=== PATIENT | male | born 1935 | race Caucasian/White ===

== ENCOUNTER 2016-05-18 10:22 | Inpatient (IN) | payer BC, OTHER ==
[2016-05-18] MEDS ORDERED: ACETAMINOPHEN 325 MG TABLET (FP) PO ONE ×2 (10:27→17:49)
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
[2016-05-18 13:41] LABS: BASOPHIL 0.3 % (0-2.0); EOSINOPHIL 0.8 % (0-4.5); MCH 29.4 pg (25.7-33.7); MCHC 32.9 g/dl (32.0-35.9); MEAN CELL VOLUME 89.2 fl (80-96); MEAN PLT VOLUME 7.7 fl (7.5-11.1); NEUTROPHILS 84.6 % (42.8-82.8); PLATELET COUNT 162 K/MM3 (134-434); RDW 14.3 % (11.9-15.9); WHITE BLOOD COUNT 13.9 K/mm3 (4.0-10.0)
[2016-05-18 13:50] LABS: ALBUMIN 3.7 g/dl (3.4-5.0); ANION GAP 12 (8-16); CALCIUM 8.5 mg/dL (8.5-10.1); CO2 25 mmol/L (21-32); GLUCOSE,RANDOM 95 mg/dL (74-106)
[2016-05-18 13:53] LABS: ALK PHOS 76 U/L (45-117); CREATININE 0.7 mg/dL (0.7-1.3); SGPT/ALT 11 U/L (12-78); TOT PROT 7.2 g/dl (6.4-8.2)
[2016-05-18 13:55] LABS: SGOT/AST 26 U/L (15-37)
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
--- NOTE | 2016-05-18 15:57 | EKG ---
Test Reason : Blood Pressure : / mmHG Vent. Rate : 065 BPM Atrial Rate : 065 BPM P-R Int : 152 ms QRS Dur : 082 ms QT Int : 412 ms P-R-T Axes : 047 -39 046 degrees QTc Int : 428 ms NORMAL SINUS RHYTHM POSSIBLE LEFT ATRIAL ENLARGEMENT LEFT AXIS DEVIATION LEFT VENTRICULAR HYPERTROPHY T WAVE ABNORMALITY, CONSIDER ANTERIOR ISCHEMIA ABNORMAL ECG NO PREVIOUS ECGS AVAILABLE Confirmed by IVONE MARTE MD ([id number]) on 05/18/2016 3:57:09 PM Referred By: Confirmed By:IVONE MARTE MD
[2016-05-18] MEDS ORDERED: ACETAMINOPHEN 325 MG TABLET (FP) ONE (17:50)
--- NOTE | 2016-05-18 18:59 | OP ---
Operative Note - Note: Operative Date: 05/18/16 Pre-Operative Diagnosis: right proximal femur fracture Operation: right gamma nailing Post-Operative Diagnosis: Same as Pre-op Surgeon: Juan Manuel Bhakta Anesthesia: General Estimated Blood Loss (mls): 100 Operative Report Dictated: Yes
[2016-05-18] MEDS ORDERED: OXYCODONE/APAP 5/325MG COMBO TABLET PO PRN ×2 (19:01→19:02)
[2016-05-18] MEDS ORDERED: MIDAZOLAM HCL 2 MG/2 ML SINGLE DOSE VIAL ONE (19:05)
[2016-05-18] MEDS ORDERED: PROPOFOL 20 ML ONE (19:05)
[2016-05-18] MEDS ORDERED: oxyCODONE HCL 5 MG TABLET PO PRN ×2 (19:06)
[2016-05-18] MEDS ORDERED: ACETAMINOPHEN 325 MG TABLET (FP) PO PRN ×2 (19:06)
[2016-05-18] MEDS ORDERED: ePHEDrine SULFATE 50 MG/1 ML AMPULE ONE (19:18)
[2016-05-18] MEDS ORDERED: ceFAZolin SODIUM 1 GM VIAL ONE (19:19)
[2016-05-18] MEDS ORDERED: ceFAZolin SODIUM 1 GM VIAL IVPB ONE (19:20)
[2016-05-18] MEDS ORDERED: DEXAMETHASONE SOD PHOSPHATE 4 MG/1 ML VIAL ONE (19:34)
[2016-05-18] MEDS ORDERED: KETOROLAC TROMETHAMINE 30 MG/1 ML VIAL ONE (19:55)
[2016-05-18] MEDS ORDERED: HYDROmorphone HCL CARPU-JECT 1 MG/1 ML DISP.SYRIN IVPUSH PRN (20:18)
[2016-05-18] MEDS ORDERED: ONDANSETRON 4 MG/2 ML VIAL IVPUSH PRN (20:18)
[2016-05-18] MEDS ORDERED: LACTATED RINGERS SOLUTION 1,000 ML IV SCH (20:30)
[2016-05-18] MEDS: LACTATED RINGERS SOLUTION 1,000 ML IV SCH (21:22)
[2016-05-18 22:40] VITALS: BMI 24.9
[2016-05-19] MEDS: CEFAZOLIN (PRE-DOCKED) 50 ML IVPB SCH ×2 (01:35→11:18)
[2016-05-19 07:12] LABS: MCH 29.8 pg (25.7-33.7); MCHC 34.1 g/dl (32.0-35.9); MEAN CELL VOLUME 87.3 fl (80-96); MEAN PLT VOLUME 7.5 fl (7.5-11.1); PLATELET COUNT 140 K/MM3 (134-434); RDW 14.3 % (11.9-15.9); WHITE BLOOD COUNT 9.8 K/mm3 (4.0-10.0)
[2016-05-19 07:36] LABS: CALCIUM 8.1 mg/dL (8.5-10.1); CREATININE 0.8 mg/dL (0.7-1.3)
[2016-05-19] MEDS ORDERED: METOPROLOL TARTRATE PO SCH (10:00)
[2016-05-19] MEDS ORDERED: PANTOPRAZOLE SODIUM 40 MG/100 ML PRE-DOCKED IVPB SCH (10:00)
--- NOTE | 2016-05-19 10:50 | PN ---
Progress Note (short form) - Note Progress Note: Ortho Pt seen and examined s/p right IM gamma nail pod #1 Selected Entries 05/19/16 05:54 Temperature 98.4 F Pulse Rate 97 H Respiratory 18 Rate Blood Pressure 135/77 Laboratory Tests 05/19/16 06:10 WBC 9.8 Hgb 11.5 L D Hct 33.8 L D Plt Count 140 dressing c/d/i, calf soft, nt nvi a/p PT wbat dvt ppx pain control d/c planning
[2016-05-19] MEDS: LACTATED RINGERS SOLUTION 1,000 ML IV SCH (11:17)
[2016-05-19] MEDS: ENOXAPARIN NA (PORCINE) 40 MG/0.4 ML DISP.SYRIN SQ SCH ×2 (11:18→11:45)
[2016-05-19] MEDS: VALSARTAN 160 MG TABLET (UD) PO SCH ×2 (11:19→11:46)
[2016-05-19] MEDS: ASPIRIN 325 MG TABLET PO SCH ×2 (11:28→11:46)
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
[2016-05-19] MEDS ORDERED: PANTOPRAZOLE SODIUM 80 MG in SODIUM CHLORIDE 100 ML IVPB SCH (12:00)
[2016-05-19 12:13] LABS: BASOPHIL 0.1 % (0-2.0); MCH 29.8 pg (25.7-33.7); MCHC 33.4 g/dl (32.0-35.9); MEAN CELL VOLUME 89.1 fl (80-96); MEAN PLT VOLUME 7.4 fl (7.5-11.1); NEUTROPHILS 84.8 % (42.8-82.8); PLATELET COUNT 151 K/MM3 (134-434); RDW 14.2 % (11.9-15.9); WHITE BLOOD COUNT 15.1 K/mm3 (4.0-10.0)
[2016-05-19] MEDS ORDERED: levETIRAcetam 500 MG/5 ML INJECTION VIAL IVPB SCH (12:15)
[2016-05-19 12:39] LABS: CALCIUM 7.9 mg/dL (8.5-10.1); CREATININE 1.3 mg/dL (0.7-1.3)
[2016-05-19] MEDS ORDERED: ACETAMINOPHEN 650 MG SUPP.RECT PR PRN (13:02)
[2016-05-19] MEDS ORDERED: METOPROLOL TARTRATE 5 MG/5 ML VIAL IVPUSH SCH (13:15)
[2016-05-19] MEDS ORDERED: ONDANSETRON 4 MG/2 ML VIAL IVPUSH PRN ×2 (13:16→13:17)
[2016-05-19] MEDS ORDERED: ONDANSETRON 4 MG/2 ML VIAL IVPB PRN (13:36)
[2016-05-19] MEDS: SODIUM CHLORIDE 1,000 ML IV SCH (14:19)
[2016-05-19] MEDS ORDERED: SODIUM CHLORIDE 1,000 ML IV STA ×2 (14:34→14:37)
[2016-05-19 15:32] LABS: BASOPHIL 0.1 % (0-2.0); MCH 29.4 pg (25.7-33.7); MCHC 33.2 g/dl (32.0-35.9); MEAN CELL VOLUME 88.5 fl (80-96); MEAN PLT VOLUME 7.8 fl (7.5-11.1); NEUTROPHILS 81.9 % (42.8-82.8); PLATELET COUNT 126 K/MM3 (134-434); WHITE BLOOD COUNT 16.3 K/mm3 (4.0-10.0)
[2016-05-19 15:35] LABS: ALBUMIN 2.6 g/dl (3.4-5.0); BILIRUBIN,TOTAL 1.1 mg/dL (0.2-1.0); CALCIUM 7.6 mg/dL (8.5-10.1); CREATININE 1.3 mg/dL (0.7-1.3); TOT PROT 5.1 g/dl (6.4-8.2)
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
[2016-05-19] MEDS ORDERED: oxyCODONE HCL 5 MG TABLET PO PRN ×2 (19:28)
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
[2016-05-19 19:43] LABS: MCH 29.8 pg (25.7-33.7); MCHC 33.7 g/dl (32.0-35.9); MEAN CELL VOLUME 88.6 fl (80-96); WHITE BLOOD COUNT 12.1 K/mm3 (4.0-10.0)
--- NOTE | 2016-05-19 19:55 | PN ---
Physical Exam: SUBJECTIVE: Patient seen and examined OBJECTIVE: Vital Signs Period Temp Pulse Resp BP Sys/Youssef Pulse Ox Last 24 Hr 97.6 F-99.9 F 80-142 13-26 66-158/38-94 95-99 GENERAL: The patient is awake, alert, and fully oriented, in no acute distress. HEAD: Normal with no signs of trauma. EYES: PERRL, extraocular movements intact, sclera anicteric, conjunctiva clear. No ptosis. ENT: Ears normal, nares patent, oropharynx clear without exudates, moist mucous membranes. NECK: Trachea midline, full range of motion, supple. LUNGS: Breath sounds equal, clear to auscultation bilaterally, no wheezes, no crackles, no accessory muscle use. HEART: Regular rate and rhythm, S1, S2 without murmur, rub or gallop. ABDOMEN: Soft, nontender, nondistended, normoactive bowel sounds, no guarding, no rebound, no hepatosplenomegaly, no masses. EXTREMITIES: 2+ pulses, warm, well-perfused, no edema. NEUROLOGICAL: Cranial nerves II through XII grossly intact. Normal speech, gait not observed. PSYCH: Normal mood, normal affect. SKIN: Warm, dry, normal turgor, no rashes or lesions noted Laboratory Results - last 24 hr 05/19/16 05/19/16 05/19/16 06:10 06:10 11:50 WBC 9.8 15.1 H D RBC 3.87 L 3.45 L Hgb 11.5 L D 10.3 L D Hct 33.8 L D 30.8 L MCV 87.3 89.1 MCHC 34.1 33.4 RDW 14.3 14.2 Plt Count 140 151 MPV 7.5 7.4 L Neutrophils % 84.8 H Lymphocytes % 6.7 L D Monocytes % 8.4 Eosinophils % 0.0 D Basophils % 0.1 PTT (Actin FS) Sodium 140 Potassium 3.9 Chloride 103 Carbon Dioxide 25 Anion Gap 12 BUN 14 D Creatinine 0.8 Creat Clearance w eGFR Random Glucose 184 H D Calcium 8.1 L Total Bilirubin AST ALT Alkaline Phosphatase Troponin I Total Protein Albumin Blood Type Antibody Screen Crossmatch 05/19/16 05/19/16 05/19/16 11:50 13:00 14:40 WBC 16.3 H RBC 2.88 L Hgb 8.5 L D Hct 25.5 L D MCV 88.5 MCHC 33.2 RDW 14.0 Plt Count 126 L MPV 7.8 Neutrophils % 81.9 Lymphocytes % 5.5 L Monocytes % 12.5 H Eosinophils % 0.0 Basophils % 0.1 PTT (Actin FS) Sodium 142 Potassium 4.0 Chloride 105 Carbon Dioxide 23 Anion Gap 14 BUN 25 H D Creatinine 1.3 D Creat Clearance w eGFR Random Glucose 164 H Calcium 7.9 L Total Bilirubin AST ALT Alkaline Phosphatase Troponin I Total Protein Albumin Blood Type O POSITIVE Antibody Screen Negative Crossmatch See Detail 05/19/16 05/19/16 05/19/16 14:40 14:40 14:40 WBC RBC Hgb Hct MCV MCHC RDW Plt Count MPV Neutrophils % Lymphocytes % Monocytes % Eosinophils % Basophils % PTT (Actin FS) 29.6 Sodium 142 Potassium 4.2 Chloride 106 Carbon Dioxide 20 L Anion Gap 16 BUN 31 H D Creatinine 1.3 Creat Clearance w eGFR 53.25 Random Glucose 147 H Calcium 7.6 L Total Bilirubin 1.1 H AST 15 D ALT 10 L Alkaline Phosphatase 43 L D Troponin I Total Protein 5.1 L D Albumin 2.6 L D Blood Type O POSITIVE Antibody Screen Crossmatch 05/19/16 05/19/16 14:40 18:00 WBC 12.1 H RBC 3.13 L Hgb 9.3 L Hct 27.8 L MCV 88.6 MCHC 33.7 RDW 14.0 Plt Count MPV Neutrophils % Lymphocytes % Monocytes % Eosinophils % Basophils % PTT (Actin FS) Sodium Potassium Chloride Carbon Dioxide Anion Gap BUN Creatinine Creat Clearance w eGFR Random Glucose Calcium Total Bilirubin AST ALT Alkaline Phosphatase Troponin I 0.12 H Total Protein Albumin Blood Type Antibody Screen Crossmatch Active Medications Generic Name Dose Route Start Last Admin Trade Name Freq PRN Reason Stop Dose Admin Acetaminophen 650 mg 05/19/16 13:02 Tylenol Suppository - [place] Q4H PRN FEVER OR PAIN Acetaminophen 650 mg 05/19/16 19:28 Tylenol - PO 05/21/16 19:05 Q4H PRN PAIN Sodium Chloride 1,000 mls @ 100 mls/hr 05/19/16 13:15 05/19/16 14:19 Normal Saline - IV 100 mls/hr ASDIR FADY Administration Pantoprazole Sodium 80 mg/ 100 mls @ 10 mls/hr 05/19/16 22:00 Sodium Chloride IVPB Q10H FADY 8 MG/HR Levetiracetam 500 mg 05/19/16 22:00 Keppra Injection - IVPB BID FADY Metoprolol Tartrate 5 mg 05/19/16 13:15 05/19/16 14:20 Lopressor Injection - IVPUSH Not Given Q6H FADY Ondansetron HCl 4 mg 05/19/16 13:36 05/19/16 14:13 Zofran Injection IVPB 4 mg Q6H PRN Administration NAUSEA AND/OR VOMITING Oxycodone HCl 5 mg 05/19/16 19:28 Roxicodone - PO Q4H PRN PAIN SCALE 1-5 Oxycodone HCl 10 mg 05/19/16 19:28 Roxicodone - PO Q4H PRN PAIN SCALE 6-10 ASSESSMENT/PLAN:
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
[2016-05-19 20:27] LABS: MEAN PLT VOLUME 8.1 fl (7.5-11.1); PLATELET COUNT 86 K/MM3 (134-434)
--- NOTE | 2016-05-19 20:27 | PN ---
Progress Note (short form) - Note Progress Note: Anesthesia postop note 81 y/o M s/p GA for Right gamma nail Patient seen earlier today, around 8:30am POD#1,aaoX3, vss overnight, vomited coffee ground emesis this morning. Later in the day, became unstable, Hct dropped, transferred to telemetry. Now in [facility]. Refused emergency EGD. Will follow.
[2016-05-19 20:28] LABS: PLATELET COMMENT2 NO CLUMPING NOTED; PLATELET COMMENT3 NO CLOTTING DETECTED; PLATELET ESTIMATE SLT DECREASED (NORMAL)
[2016-05-19 20:49] LABS: ALBUMIN 2.6 g/dl (3.4-5.0); ANION GAP 9 (8-16); BILIRUBIN,TOTAL 1.4 mg/dL (0.2-1.0); CALCIUM 7.2 mg/dL (8.5-10.1); CO2 23 mmol/L (21-32); CREATININE 0.9 mg/dL (0.7-1.3); GLUCOSE,RANDOM 121 mg/dL (74-106); MAGNESIUM 1.4 mg/dL (1.8-2.4); SGOT/AST 19 U/L (15-37); SGPT/ALT 13 U/L (12-78); TOT PROT 5.1 g/dl (6.4-8.2)
[2016-05-19 20:55] LABS: ALK PHOS 44 U/L (45-117)
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
[2016-05-19 21:01] LABS: PHOSPHOROUS 1.1 mg/dL (2.5-4.9)
[2016-05-19] MEDS ORDERED: SODIUM PHOSPHATE - 15 MM in DEXTROSE 5%-WATER - 250 ML IVPB ONE (22:15)
[2016-05-19 22:28] LABS: MCH 29.4 pg (25.7-33.7); MCHC 33.4 g/dl (32.0-35.9); MEAN CELL VOLUME 87.9 fl (80-96); RDW 14.2 % (11.9-15.9); WHITE BLOOD COUNT 11.3 K/mm3 (4.0-10.0)
[2016-05-19] MEDS: levETIRAcetam 500 MG/5 ML INJECTION VIAL IVPB SCH (22:31)
[2016-05-19] MEDS ORDERED: ACETAMINOPHEN 1000 MG/100 ML VIAL (NON FORMULARY) IVPB ONE (23:12)
[2016-05-19 23:34] LABS: PLATELET COMMENT2 UNABLE TO ENUMERATE; PLATELET COMMENT3 FEW GIANT PLTS; PLATELET ESTIMATE SLT DECREASED (NORMAL)
[2016-05-20] MEDS: PANTOPRAZOLE SODIUM 80 MG in SODIUM CHLORIDE 100 ML IVPB SCH ×2 (00:10→11:38)
--- NOTE | 2016-05-20 02:08 | HOSP ---
Subjective - Review of Symptoms Subjective: I was informed by the nurse about the Incident at around 12:25am on 05/20/2016. As per the nurse, patient's heart rate went up to 150's in the monitor, she immediately went to see the patient and found him standing at the end of the bed. Nurse found him unsteady and she eased him on the floor, called for help and they were able to put him back on the bed. Patient didn't hit his head or any parts of the body. He was immediately taken to the CT-scan of right femur, abdomen/pelvis, head CT which was ordered earlier during the day as a routine imaging. Night Nurse reported that ever since she came in, patient has been refusing CT scans and EGD. But after the fall, patient agreed to go for the imaging. I assessed the patient after he came back from CT scan. No complaints. Denies pain over the surgical site, chest pain, sob, cough, palpitation, fever, chills, rigors, sweating, headache, dizziness. On Physical Examination: Vitals BP-109/71; P- 100bpm, T-afebrile, RR-18 General: Elderly male lying in bed, awake, alert, oriented x 3 (to place, time, person, president), in no acute distress. HEENT: EOM intact, no pallor or icterus. Chest: B/L lungs clear, no added sounds. CVS: Regular, S1, S2, no murmur Abdomen: Soft, non tender, no organomegaly. Extremities: Left normal Right: Bandage applied over the surgical site, minimal soakage + Plan: Awaiting CT scan reports of CT right femur, abdomen/pelvis and head Patient is hemodynamically stable at this time. 05/20/2016 2:28pm CT of the pelvis and right hip without contrast: S/p post open reductio n internal fixation of a proximal right femoral fractre. Fracture fragments in approximate anatomic position CT head without contrast: Dystrophic calcifications likely prior ischemic changes, but small petechial bleeds in these locations cannot be ruled out. F/ up CT scan of the head in 6 hours is recommended. Plan of care explained to the patient. He verbalized understanding. Case discussed with Dr. Garcia. Physical Examination Vital Signs: Vital Signs Temperature 99.4 F 05/20/16 00:00 Pulse Rate 112 H 03/11/17 00:00 Respiratory Rate 17 05/20/16 00:00 Blood Pressure 89/63 05/20/16 00:00 O2 Sat by Pulse Oximetry (%) 97 05/19/16 20:28 Labs: CBC, BMP 05/19/16 21:30 05/19/16 20:05 Visit type - Emergency Visit Emergency Visit: Yes ED Registration Date: 05/18/16 Care time: The patient presented to the Emergency Department on the above date and was hospitalized for further evaluation of their emergent condition. - New Patient This patient is new to me today: Yes Date on this admission: 05/22/16 - Critical Care Critical Care patient: No
[2016-05-20 06:24] LABS: MCH 30.5 pg (25.7-33.7); MCHC 34.1 g/dl (32.0-35.9); MEAN CELL VOLUME 89.5 fl (80-96); MEAN PLT VOLUME 8.1 fl (7.5-11.1); PLATELET COUNT 70 K/MM3 (134-434); RDW 14.2 % (11.9-15.9); WHITE BLOOD COUNT 9.7 K/mm3 (4.0-10.0)
[2016-05-20 06:38] LABS: CALCIUM 7.2 mg/dL (8.5-10.1); CREATININE 0.7 mg/dL (0.7-1.3); MAGNESIUM 1.6 mg/dL (1.8-2.4); PHOSPHOROUS 1.9 mg/dL (2.5-4.9)
[2016-05-20 06:40] LABS: INR 1.45 (0.82-1.09); PROTHROMBIN TIME (PATIENT) 16.1 SEC (9.98-11.88)
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
[2016-05-20] MEDS: SODIUM CHLORIDE 1,000 ML IV SCH ×2 (09:18→20:24)
[2016-05-20] MEDS: levETIRAcetam 500 MG/5 ML INJECTION VIAL IVPB SCH ×2 (09:18→21:18)
--- NOTE | 2016-05-20 09:28 | OP ---
DATE OF OPERATION: 05/18/2016 PREOPERATIVE DIAGNOSIS: Right long spiral proximal femur fracture. POSTOPERATIVE DIAGNOSIS: Right long spiral proximal femur fracture. PROCEDURE: Right Gamma nailing. SURGICAL ATTENDING: Juan Manuel Bhakta M.D. ANESTHESIA: General with LMA. CLOSURE: A long Gamma nail with appropriate interlocks, 0 Vicryl for fascia, 0 and 2-0 for subcutaneous, ese for skin. ESTIMATED BLOOD LOSS: 100 mL. COMPLICATIONS: None. CONDITION: Recovery room in stable condition. DESCRIPTION OF OPERATIVE PROCEDURE: The patient was taken to the operating room on May 18, 2016. General anesthesia with LMA was administered by the anesthesiologist. IV Kefzol was administered prophylactically prior to the case. Patient was fastened to the fracture table with all prominences well padded. Confirmation of excellent reduction was confirmed in the AP and lateral planes. The right hip area was prepped and draped in the usual sterile fashion by use of a shower curtain. A 3-cm longitudinal incision with tip of the greater trochanter was incised to the lateral aspect of the thigh. Hemostasis was achieved with Bovie cautery. Sharp dissection was carried through the fascia. The guidewire was drilled from the tip of the fascia into the intramedullary canal. Proper placement was confirmed by the AP and lateral planes by using image intensifier. This was overreamed with the proximal reamer. Long beaded guidewire was placed all the way down to the knee, and confirmation confirmed in the AP and lateral planes by using the image intensifier. The 11.5 reamer was used to sound the isthmus and was found to pass easily. A 10 x 380 mm patrick was then malletted down into place. Using the outrigger through a small stab incision laterally, the guidewire was drilled from lateral aspect of the femur through the femoral neck into the femoral head. Proper placement was confirmed with the AP and lateral planes using the image intensifier. This was overreamed with the triple reamer, and then screwed with the appropriate-sized lag screw achieving excellent fixation. Compression devices were used to compress the fracture slightly. The facet screw was placed above in the static fashion. Using a free-hand technique, two distal interlocks were placed by drilling depth scanners going through appropriate sized screws from lateral to medially. Proper placement confirmed in the AP and lateral planes based on the image intensifier. X-rays in the AP and lateral planes revealed excellent position of all hardware proximal to distal with excellent reduction of fracture. The wounds were irrigated with copious amounts of irrigation. The fascia was closed with 0 Vicryl, 0 and 2-0 for subcutaneous, and ese for skin. A sterile pressure dressing was placed over the thigh. The patient was awakened from anesthesia and transferred to recovery room in stable condition. No complications. Estimated blood loss negligible. Giovana MCKEON/[id number]
[2016-05-20 09:35] LABS: TROPONIN I 1.31 ng/ml (0.00-0.05)
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
--- NOTE | 2016-05-20 14:06 | PN ---
Progress Note (short form) - Note Progress Note: Ortho Pt seen and examined s/p right IM gamma nail pod #2, was transferred to ICU due to coffee ground emesis, being worked up for upper gi bleed however refused EGD Selected Entries 05/20/16 05/20/16 05/20/16 10:00 12:00 12:18 Temperature 99.2 F Pulse Rate 113 H Respiratory 18 Rate Blood Pressure 107/62 Laboratory Tests 05/20/16 05:20 WBC 9.7 Hgb 8.9 L Hct 26.0 L Plt Count 70 L dressing saturated, calf soft, nt nvi a/p Dressing changed PT when able wbat dvt ppx pain control will follow
--- NOTE | 2016-05-20 14:39 | EKG ---
Test Reason : Blood Pressure : / mmHG Vent. Rate : 105 BPM Atrial Rate : 105 BPM P-R Int : 136 ms QRS Dur : 074 ms QT Int : 350 ms P-R-T Axes : 061 -33 037 degrees QTc Int : 462 ms SINUS TACHYCARDIA POSSIBLE WPW with short NC LEFT AXIS DEVIATION NONSPECIFIC ST ABNORMALITY ABNORMAL ECG Confirmed by GIGI HERNANDEZ MD ([id number]) on 05/20/2016 2:39:28 PM Referred By: Confirmed By:GIGI HERNANDEZ MD
[2016-05-20] MEDS ORDERED: morphine CARPU-JECT 2 MG/1 ML DISP.SYRIN IVPUSH ONE (14:47)
--- NOTE | 2016-05-20 14:49 | EKG ---
Test Reason : Blood Pressure : / mmHG Vent. Rate : 129 BPM Atrial Rate : 129 BPM P-R Int : 138 ms QRS Dur : 072 ms QT Int : 312 ms P-R-T Axes : 061 -39 067 degrees QTc Int : 457 ms SINUS TACHYCARDIA LEFT AXIS DEVIATION MINIMAL VOLTAGE CRITERIA FOR LVH, MAY BE NORMAL VARIANT NONSPECIFIC ST ABNORMALITY ABNORMAL ECG Confirmed by GIGI HERNANDEZ MD ([id number]) on 05/20/2016 2:49:20 PM Referred By: SKYLAR BOWDEN Confirmed By:GIGI HERNANDEZ MD
[2016-05-20 15:29] LABS: MCHC 35.1 g/dl (32.0-35.9); MEAN CELL VOLUME 88.3 fl (80-96); MEAN PLT VOLUME 8.4 fl (7.5-11.1); PLATELET COUNT 74 K/MM3 (134-434); RDW 14.6 % (11.9-15.9); WHITE BLOOD COUNT 10.4 K/mm3 (4.0-10.0)
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
[2016-05-20] MEDS: ACETAMINOPHEN 325 MG TABLET (FP) PO PRN (19:40)
[2016-05-20] MEDS: PANTOPRAZOLE SODIUM 100 ML IVPB SCH (21:18)
[2016-05-21 06:01] LABS: BASOPHIL 0.4 % (0-2.0); EOSINOPHIL 2.1 % (0-4.5); MCH 30.3 pg (25.7-33.7); MEAN CELL VOLUME 89.2 fl (80-96); MEAN PLT VOLUME 8.3 fl (7.5-11.1); NEUTROPHILS 71.4 % (42.8-82.8); PLATELET COUNT 65 K/MM3 (134-434); RDW 14.5 % (11.9-15.9); WHITE BLOOD COUNT 7.6 K/mm3 (4.0-10.0)
[2016-05-21 06:22] LABS: ALBUMIN 2.4 g/dl (3.4-5.0); ANION GAP 5 (8-16); CO2 27 mmol/L (21-32); GLUCOSE,RANDOM 93 mg/dL (74-106); MAGNESIUM 1.7 mg/dL (1.8-2.4); SGPT/ALT 11 U/L (12-78)
[2016-05-21 06:25] LABS: ALK PHOS 40 U/L (45-117); BILIRUBIN,TOTAL 0.9 mg/dL (0.2-1.0); CREATININE 0.6 mg/dL (0.7-1.3); SGOT/AST 24 U/L (15-37); TOT PROT 4.8 g/dl (6.4-8.2)
[2016-05-21 06:42] LABS: TROPONIN I 1.28 ng/ml (0.00-0.05)
[2016-05-21] MEDS: ACETAMINOPHEN 325 MG TABLET (FP) PO PRN ×2 (06:53→12:20)
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
[2016-05-21] MEDS ORDERED: MAGNESIUM SULF 50% (8.12 MEQ/2 ML-1 GM VIAL) IVPB ONE (08:30)
[2016-05-21] MEDS ORDERED: MAGNESIUM SULF 50% (8.12 MEQ/2 ML-1 GM VIAL) ONE (08:49)
[2016-05-21] MEDS: levETIRAcetam 500 MG/5 ML INJECTION VIAL IVPB SCH ×2 (10:40→22:17)
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
[2016-05-21] MEDS: PANTOPRAZOLE SODIUM 100 ML IVPB SCH ×2 (10:45→22:18)
[2016-05-21 12:06] LABS: BASOPHIL 0.4 % (0-2.0); EOSINOPHIL 1.4 % (0-4.5); MCH 29.9 pg (25.7-33.7); MCHC 33.6 g/dl (32.0-35.9); MEAN CELL VOLUME 88.8 fl (80-96); MEAN PLT VOLUME 7.4 fl (7.5-11.1); NEUTROPHILS 72.5 % (42.8-82.8); PLATELET COUNT 58 K/MM3 (134-434); RDW 14.1 % (11.9-15.9); WHITE BLOOD COUNT 7.4 K/mm3 (4.0-10.0)
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
[2016-05-21] MEDS: SODIUM CHLORIDE 1,000 ML IV SCH ×2 (18:49→19:00)
[2016-05-21 21:44] LABS: BASOPHIL 0.7 % (0-2.0); MCHC 34.1 g/dl (32.0-35.9); MEAN CELL VOLUME 87.7 fl (80-96); MEAN PLT VOLUME 8.4 fl (7.5-11.1); NEUTROPHILS 69.8 % (42.8-82.8); PLATELET COUNT 61 K/MM3 (134-434); RDW 14.4 % (11.9-15.9); WHITE BLOOD COUNT 7.3 K/mm3 (4.0-10.0)
[2016-05-22] MEDS: SODIUM CHLORIDE 1,000 ML IV SCH (06:31)
--- NOTE | 2016-05-22 09:04 | PN ---
Progress Note (short form) - Note Progress Note: Ortho Pt having EGD this am. Will follow-up
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
--- NOTE | 2016-05-22 09:45 | PN ---
Progress Note (short form) - Note Progress Note: GI Procedure NOte: Please see scanned EGD report. No active bleeding was seen on scope introduction. Transient self limited bleeding was noted from reflux esophagitis ulcerations found above a sliding hiatal hernia at the GE junction.
[2016-05-22] MEDS: levETIRAcetam 500 MG/5 ML INJECTION VIAL IVPB SCH ×2 (10:50→21:34)
[2016-05-22] MEDS: MAG HYDROX/AL HYDROX/SIMETH 30 ML UNIT-DOSE CUP PO SCH ×2 (11:16→18:54)
[2016-05-22] MEDS: METOPROLOL TARTRATE 5 MG/5 ML VIAL IVPUSH SCH ×2 (11:16→18:56)
[2016-05-22] MEDS: PANTOPRAZOLE SODIUM 80 MG in SODIUM CHLORIDE 100 ML IVPB SCH ×2 (11:17→21:32)
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
[2016-05-22] MEDS: DEXTROSE 5%-0.45% SALINE 1,000 ML IV SCH (21:31)
[2016-05-23] MEDS: MAG HYDROX/AL HYDROX/SIMETH 30 ML UNIT-DOSE CUP PO SCH ×4 (00:15→18:13)
[2016-05-23] MEDS: METOPROLOL TARTRATE 5 MG/5 ML VIAL IVPUSH SCH ×2 (02:00→10:07)
[2016-05-23 06:43] LABS: BASOPHIL 0.4 % (0-2.0); EOSINOPHIL 5.1 % (0-4.5); MCH 30.3 pg (25.7-33.7); MCHC 34.5 g/dl (32.0-35.9); MEAN CELL VOLUME 87.9 fl (80-96); MEAN PLT VOLUME 8.2 fl (7.5-11.1); NEUTROPHILS 67.4 % (42.8-82.8); PLATELET COUNT 103 K/MM3 (134-434); RDW 14.7 % (11.9-15.9)
[2016-05-23] MEDS: PANTOPRAZOLE SODIUM 80 MG in SODIUM CHLORIDE 100 ML IVPB SCH (07:01)
[2016-05-23 07:04] LABS: CALCIUM 7.3 mg/dL (8.5-10.1); CREATININE 0.4 mg/dL (0.7-1.3); MAGNESIUM 2.1 mg/dL (1.8-2.4); PHOSPHOROUS 1.3 mg/dL (2.5-4.9)
[2016-05-23 07:05] LABS: FERRITIN 234.569 ng/ml (16.4-293.9)
[2016-05-23 07:17] LABS: INR 1.3 (0.82-1.09); PROTHROMBIN TIME (PATIENT) 14.4 SEC (9.98-11.88)
[2016-05-23 07:19] LABS: ACTIVATED PTT 28.9 SECONDS (26.9-34.4)
[2016-05-23] MEDS ORDERED: POTASSIUM PHOSPHATE 30 MM in SODIUM CHLORIDE 250 ML IVPB ONE (10:00)
[2016-05-23] MEDS: levETIRAcetam 500 MG/5 ML INJECTION VIAL IVPB SCH (10:11)
[2016-05-23] MEDS: DEXTROSE 5%-0.45% SALINE 1,000 ML IV SCH (10:16)
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
--- NOTE | 2016-05-23 14:58 | PN ---
GI Progress Note Subjective: GI Note: No overt bleeding. Hb stable. Hungry. Tolerated solid lunch. - Objective Vital Signs: Vital Signs Temperature 99.2 F 05/23/16 12:00 Pulse Rate 78 05/23/16 12:00 Respiratory Rate 18 05/23/16 12:00 Blood Pressure 131/80 05/23/16 12:00 O2 Sat by Pulse Oximetry (%) 95 05/23/16 09:34 CBC,CMP WBC 7.0 K/mm3 (4.0-10.0) 05/23/16 05:05 RBC 3.22 M/mm3 (4.00-5.60) L 05/23/16 05:05 Hgb 9.8 GM/dL (11.7-16.9) L 05/23/16 05:05 Hct 28.3 % (35.4-49) L 05/23/16 05:05 MCV 87.9 fl (80-96) 05/23/16 05:05 MCHC 34.5 g/dl (32.0-35.9) 05/23/16 05:05 RDW 14.7 % (11.9-15.9) 05/23/16 05:05 Plt Count 103 K/MM3 (134-434) L D 05/23/16 05:05 MPV 8.2 fl (7.5-11.1) 05/23/16 05:05 Neutrophils % 67.4 % (42.8-82.8) 05/23/16 05:05 Lymphocytes % 13.2 % (8-40) 05/23/16 05:05 Monocytes % 13.9 % (3.8-10.2) H 05/23/16 05:05 Eosinophils % 5.1 % (0-4.5) H 05/23/16 05:05 Basophils % 0.4 % (0-2.0) 05/23/16 05:05 Differential Comment Slide scanned 05/19/16 21:30 Platelet Estimate Slt decreased (NORMAL) 05/19/16 21:30 Platelet Comment Slt plt clumping 05/19/16 21:30 Platelet Comment Unable to enumerate 05/19/16 21:30 Retic Count 3.06 % (0.5-1.5) H 05/23/16 05:05 Sodium 143 mmol/L (136-145) 05/23/16 05:05 Potassium 3.5 mmol/L (3.5-5.1) 05/23/16 05:05 Chloride 108 mmol/L (98-107) H 05/23/16 05:05 Carbon Dioxide 27 mmol/L (21-32) 05/23/16 05:05 Anion Gap 8 (8-16) 05/23/16 05:05 BUN 4 mg/dL (7-18) L D 05/23/16 05:05 Creatinine 0.4 mg/dL (0.7-1.3) L D 05/23/16 05:05 Creat Clearance w eGFR > 60 (>60) 05/21/16 05:20 Random Glucose 127 mg/dL (74-106) H D 05/23/16 05:05 Lactic Acid 1.160 mmol/L (0.4-2.0) 05/21/16 05:20 Calcium 7.3 mg/dL (8.5-10.1) L 05/23/16 05:05 Phosphorus 1.3 mg/dL (2.5-4.9) L D 05/23/16 05:05 Magnesium 2.1 mg/dL (1.8-2.4) D 05/23/16 05:05 Ferritin 234.569 ng/ml (16.4-293.9) 05/23/16 05:05 Total Bilirubin 0.9 mg/dL (0.2-1.0) D 05/21/16 05:20 AST 24 U/L (15-37) D 05/21/16 05:20 ALT 11 U/L (12-78) L 05/21/16 05:20 Alkaline Phosphatase 40 U/L (45-117) L 05/21/16 05:20 Creatine Kinase 169 IU/L (39-308) D 05/21/16 05:20 Creatine Kinase Index 2.4 % (0.0-5.0) 05/21/16 05:20 CK-MB (CK-2) 3.986 ng/ml (0.5-3.6) H 05/21/16 05:20 CK-MB (CK-2) Rel Index Cancelled 05/20/16 05:20 Troponin I 1.28 ng/ml (0.00-0.05) H* 05/21/16 05:20 Total Protein 4.8 g/dl (6.4-8.2) L 05/21/16 05:20 Albumin 2.4 g/dl (3.4-5.0) L 05/21/16 05:20 Constitutional: Calm ...Auscultate: Yes: Normoactive Bowel Sounds ...Palpate: Yes: Soft, Other (nontender) Labs: CBC, BMP 05/23/16 05:05 05/23/16 05:05 INR, PTT INR 1.30 (0.82-1.09) H 05/23/16 05:05 Assessment/Plan GERD related bleeding has subsided. Discussed need to continue PPI until seen in the office where a repeat EGD will be arranged after 3 months of therapy to exclude Tinoco's esophagus. No GI objections to discharge.
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
[2016-05-23 16:03] LABS: MCH 30.2 pg (25.7-33.7); MCHC 34.3 g/dl (32.0-35.9); MEAN CELL VOLUME 88.2 fl (80-96); MEAN PLT VOLUME 7.8 fl (7.5-11.1); PLATELET COUNT 108 K/MM3 (134-434); RDW 14.7 % (11.9-15.9); WHITE BLOOD COUNT 8.9 K/mm3 (4.0-10.0)
[2016-05-23] MEDS ORDERED: oxyCODONE HCL 5 MG TABLET PO PRN (17:14)
[2016-05-23] MEDS ORDERED: SODIUM CHLORIDE 1,000 ML IV STA ×2 (17:14)
[2016-05-23] MEDS: VALSARTAN 160 MG TABLET (UD) PO SCH (18:13)
[2016-05-23 18:36] LABS: URINE APPEARANCE CLEAR; URINE BILIRUBIN NEGATIVE (NEGATIVE); URINE BLOOD NEGATIVE (NEGATIVE); URINE COLOR STRAW; URINE GLUCOSE (UA) NEGATIVE (NEGATIVE); URINE KETONE TRACE (NEGATIVE); URINE LEUK ESTERASE NEGATIVE (NEGATIVE); URINE NITRITE NEGATIVE (NEGATIVE); URINE PROTEIN NEGATIVE (NEGATIVE); URINE UROBILINOGEN NEGATIVE E.U./dl (0.2-1.0)
[2016-05-23] MEDS: levETIRAcetam 500 MG TABLET (FP) PO SCH (21:56)
[2016-05-23] MEDS: PANTOPRAZOLE 40 MG TABLET (FP) PO SCH (21:56)
[2016-05-24] MEDS: MAG HYDROX/AL HYDROX/SIMETH 30 ML UNIT-DOSE CUP PO SCH ×4 (00:15→18:36)
[2016-05-24 06:02] LABS: BASOPHIL 0.4 % (0-2.0); MCH 31.5 pg (25.7-33.7); MCHC 35.2 g/dl (32.0-35.9); MEAN CELL VOLUME 89.5 fl (80-96); NEUTROPHILS 63.2 % (42.8-82.8); PLATELET COUNT 146 K/MM3 (134-434); RDW 14.7 % (11.9-15.9); WHITE BLOOD COUNT 8.6 K/mm3 (4.0-10.0)
[2016-05-24 06:16] LABS: CALCIUM 7.5 mg/dL (8.5-10.1); CREATININE 0.5 mg/dL (0.7-1.3); MAGNESIUM 2.1 mg/dL (1.8-2.4); PHOSPHOROUS 1.9 mg/dL (2.5-4.9)
[2016-05-24 06:20] LABS: INR 1.36 (0.82-1.09); PROTHROMBIN TIME (PATIENT) 15.1 SEC (9.98-11.88)
[2016-05-24] MEDS ORDERED: POTASSIUM PHOSPHATE 30 MM in SODIUM CHLORIDE 250 ML IVPB ONE (09:00)
[2016-05-24] MEDS ORDERED: DEXTROSE 5% IVPB ONE (10:00)
[2016-05-24] MEDS ORDERED: WATER IVPB ONE (10:00)
[2016-05-24] MEDS ORDERED: DIPYRIDAMOLE STRESS TEST IVPB ONE (10:00)
[2016-05-24] MEDS ORDERED: METOPROLOL TARTRATE 50 MG TABLET (FP) PO SCH ×2 (10:00→22:00)
--- NOTE | 2016-05-24 11:47 | PN ---
GI Progress Note Subjective: GI NOte: No evidence of further GI bleeding. Reflux is under control with PPI. - Objective Vital Signs: Vital Signs Temperature 97.8 F 05/24/16 08:00 Pulse Rate 103 H 05/24/16 08:00 Respiratory Rate 05/24/16 08:00 Blood Pressure 126/91 05/24/16 08:00 O2 Sat by Pulse Oximetry (%) 97 05/24/16 08:00 Constitutional: Calm ...Auscultate: Yes: Normoactive Bowel Sounds ...Palpate: Yes: Soft, Other (nontender) Labs: CBC, BMP 05/24/16 05:10 05/24/16 05:10 INR, PTT INR 1.36 (0.82-1.09) H 05/24/16 05:10 Laboratory Tests 05/23/16 05/24/16 05/24/16 05:05 05:10 05:10 Hgb 10.4 L Retic Count 3.06 H BUN 6 L D Creatinine 0.5 L D Assessment/Plan GERD related bleeding has subsided. Continue PPI. No GI objections to discharge in PPI.
[2016-05-24] MEDS: levETIRAcetam 500 MG TABLET (FP) PO SCH ×2 (11:50→21:13)
[2016-05-24] MEDS: VALSARTAN 160 MG TABLET (UD) PO SCH (11:51)
[2016-05-24] MEDS: PANTOPRAZOLE 40 MG TABLET (FP) PO SCH ×2 (11:52→21:13)
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
[2016-05-24] MEDS ORDERED: oxyCODONE HCL 5 MG TABLET PO PRN (18:42)
[2016-05-24] MEDS: METOPROLOL SUCCINATE 50 MG TAB.SR.24H (FP) PO SCH (21:13)
[2016-05-24] MEDS: ATORVASTATIN CA 80 MG TABLET (FP) PO SCH (21:13)
[2016-05-25] MEDS: MAG HYDROX/AL HYDROX/SIMETH 30 ML UNIT-DOSE CUP PO SCH ×4 (00:57→21:27)
[2016-05-25 08:07] LABS: SERUM IRON 38 ug/dL (38-169); TOTAL IRON BINDING CAPACITY 188 ug/dL (250-450); UIBC 150 ug/dL (111-343)
[2016-05-25 08:09] LABS: MCH 33.7 pg (25.7-33.7); MCHC 35.5 g/dl (32.0-35.9); MEAN CELL VOLUME 95.1 fl (80-96); MEAN PLT VOLUME 7.3 fl (7.5-11.1); PLATELET COUNT 165 K/MM3 (134-434); RDW 14.9 % (11.9-15.9); WHITE BLOOD COUNT 9.3 K/mm3 (4.0-10.0)
[2016-05-25 08:31] LABS: CALCIUM 7.8 mg/dL (8.5-10.1)
[2016-05-25 08:34] LABS: CREATININE 0.5 mg/dL (0.7-1.3); MAGNESIUM 2.4 mg/dL (1.8-2.4); PHOSPHOROUS 2.5 mg/dL (2.5-4.9)
--- NOTE | 2016-05-25 08:41 | PN ---
Progress Note (short form) - Note Progress Note: Ortho Pt seen and examined s/p right IM gamma nail Selected Entries 05/25/16 07:55 Temperature 96.3 F L Pulse Rate 91 H Respiratory 18 Rate Blood Pressure 131/73 Laboratory Tests 05/25/16 05:35 WBC 9.3 Hgb 10.0 L Hct 28.2 L Plt Count 165 dressing c/d/i, calf soft ,nt nvi a/p PT wbat dvt ppx pain control d/c planning
[2016-05-25] MEDS: PANTOPRAZOLE 40 MG TABLET (FP) PO SCH ×2 (09:45→21:27)
[2016-05-25] MEDS: VALSARTAN 160 MG TABLET (UD) PO SCH (09:46)
[2016-05-25] MEDS: levETIRAcetam 500 MG TABLET (FP) PO SCH ×2 (09:46→21:27)
[2016-05-25] MEDS: METOPROLOL SUCCINATE 50 MG TAB.SR.24H (FP) PO SCH ×2 (09:46→21:27)
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
[2016-05-25] MEDS: ASPIRIN COATED 81 MG TABLET.EC PO SCH (15:14)
[2016-05-25] MEDS: ATORVASTATIN CA 80 MG TABLET (FP) PO SCH (21:27)
[2016-05-26] MEDS: MAG HYDROX/AL HYDROX/SIMETH 30 ML UNIT-DOSE CUP PO SCH ×3 (06:24→11:52)
[2016-05-26 07:32] VITALS: BP 130/72; TEMP 98.5
[2016-05-26] MEDS: PANTOPRAZOLE 40 MG TABLET (FP) PO SCH (09:10)
[2016-05-26] MEDS: ASPIRIN COATED 81 MG TABLET.EC PO SCH (09:10)
[2016-05-26] MEDS: levETIRAcetam 500 MG TABLET (FP) PO SCH (09:10)
[2016-05-26] MEDS: METOPROLOL SUCCINATE 50 MG TAB.SR.24H (FP) PO SCH (09:10)
[2016-05-26] MEDS: VALSARTAN 160 MG TABLET (UD) PO SCH (09:10)
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
[2016-05-26 11:15] VITALS: PULSE 86
== END 2016-05-26 14:55 | disposition home or self-care (01) | DRG 308 ==
LOC: JER 10:22 → JERBED 12:25 → J6S 21:32 → J4S 05-19 12:58 → JICU 05-19 15:19 → J4W 05-24 22:09
PROVIDERS: ADMIT Family Medicine; ATTEND Nurse Practitioner Family
PROC: 0QS606Z Reposition Right Upper Femur with Intramedullary Internal Fixation Device, Open Approach (ICD-10-PCS; principal; 2016-05-18 19:00)
PROC: 30253N1 (ICD-10-PCS; 2016-05-19)
PROC: 0DJ08ZZ Inspection of Upper Intestinal Tract, Via Natural or Artificial Opening Endoscopic (ICD-10-PCS; 2016-05-22)
DX: S72.8X1A Other fracture of right femur, initial encounter for closed fracture (principal); V09.9XXA Pedestrian injured in unspecified transport accident, initial encounter; Y93.9 Activity, unspecified; Y92.488 Other paved roadways as the place of occurrence of the external cause; Y99.9 Unspecified external cause status; I10 Essential (primary) hypertension; E78.5 Hyperlipidemia, unspecified; R57.1 Hypovolemic shock; K92.0 Hematemesis; R00.0 Tachycardia, unspecified; I95.9 Hypotension, unspecified; D62 Acute posthemorrhagic anemia; D69.6 Thrombocytopenia, unspecified; G40.909 Epilepsy, unspecified, not intractable, without status epilepticus
CPT/HCPCS: 36415; 36430; 70450-TC; 71010-TC; 71250-TC; 73523-TC; 73552-TC-RT; 73700-TC-RT; 74176-TC; 76000-TC; 78452-TC; 80048; 80053; 81003; 82550; 82553; 82728; 83540; 83550; 83605; 83735; 84100; 84484; 85025; 85027; 85044; 85610; 85730; 86850; 86900; 86901; 86922; 87040; 87086; 87186; 93005; 93010; 93017; 93306-TC; 94760; 97116-GP; 97161-GP; 99285-25; A9502; C1887; J1245; P9038; P9058